=== PATIENT | male | born 1960 | race Caucasian/White ===

== ENCOUNTER → 2021-04-22 | Outpatient (CLI) | payer OTHER ==
[~2021-04-22] MED LIST: PRED10TA2 PO; PROAAER10 INH; TIZA2CAP PO; TRAZ-252 PO
== END ==
LOC: M LABSMTC 10:36
PROVIDERS: ATTEND Anesthesiology
DX: Z01.818 Encounter for other preprocedural examination (principal); Z11.52 Encounter for screening for COVID-19

== ENCOUNTER 2021-04-26 09:31 | Day surgery (SDC) | payer OTHER ==
[~2021-04-26] VITALS: Ht 162.6 cm; Wt 69.4 kg
[~2021-04-26 09:31] MED LIST changes: +CelecoXIB 400 MG CAP PO ONE; +LIDOCAINE 2% 100MG/5ML SDV (FOR ANES.) As Ordered ONE; +LR 1,000 ML IV ONE; +MIDAZOLAM INJ 2MG/2ML VIAL (J2250 PER 1MG) As Ordered ONE; +ONDANSETRON 4MG/2ML VIAL As Ordered ONE; +ROCURONIUM BROMIDE 50 MG/5 ML VIAL As Ordered ONE; +SUGAMMADEX SODIUM 500 MG/5 ML VIAL (BRIDION) As Ordered ONE; +ceFAZolin SOD 2 GM in IV 1 EA IV ONE; +dexameTHASONE 4 MG/ML 1ML VIAL (J1100 PER 1MG) As Ordered ONE; +fentaNYL 250 MCG/5 ML INJECTION (J3010) As Ordered ONE; +propofoL 200 MG/20 ML VIAL As Ordered ONE
[2021-04-26] MEDS ORDERED: BUPIVACAINE HCL 0.25% 30ML VIAL As Ordered ONE (12:40)
[2021-04-26] MEDS ORDERED: LIDOCAINE 1% SDV 30ML VIAL As Ordered ONE (12:40)
[2021-04-26] MEDS ORDERED: ACETAMINOPHEN 1000MG 100ML IV BTL (OFIRMEV) (J0131 PER 10MG) As Ordered ONE (13:12)
[2021-04-26] MEDS ORDERED: PERCOCET 5MG/325MG TAB PO PRN ×2 (15:10)
[2021-04-26] MEDS ORDERED: KETOROLAC 30 MG/ML 1ML VIAL IV PRN (15:10)
[2021-04-26] MEDS ORDERED: ONDANSETRON 4MG/2ML VIAL IV PRN ×2 (15:10)
[2021-04-26] MEDS ORDERED: LR 1,000 ML IV SCH (15:10)
[2021-04-26] MEDS ORDERED: oxyCODONE 5MG TAB PO PRN (15:10)
[2021-04-26] MEDS ORDERED: HYDROMORPHONE HCL 0.5 MG/ 0.5 ML SYRINGE (J1170 PER 1) IV PRN (15:10)
[2021-04-26] MEDS ORDERED: fentaNYL 100 MCG/2 ML INJECTION (J3010) IV PRN (15:10)
[2021-04-26 17:25] VITALS: BP 130/81
== END 2021-04-26 17:33 | disposition home or self-care (01) ==
LOC: M SDC 09:31
PROVIDERS: ATTEND Surgery
DX: K40.00 Bilateral inguinal hernia, with obstruction, without gangrene, not specified as recurrent (principal); D17.6 Benign lipomatous neoplasm of spermatic cord; R10.31 Right lower quadrant pain; M19.90 Unspecified osteoarthritis, unspecified site
CPT/HCPCS: 49650; 64425; C1781; J0131; J0690; J1100; J1885; J2250; J2405; J3010; S2900